=== PATIENT | female | born 1985 | race Caucasian/White ===

== ENCOUNTER 2017-07-21 08:52 | Outpatient (CLI) | payer OTHER | END 2017-07-21 09:02 | disposition home or self-care (01) | LOC: EKG 08:52 | DX: R22.9 Localized swelling, mass and lump, unspecified (principal); Z01.810 Encounter for preprocedural cardiovascular examination ==

== ENCOUNTER 2017-07-31 06:00 | Day surgery (SDC) | payer OTHER ==
[2017-07-31] MEDS ORDERED: ULTRACET PO (09:59)
[2017-07-31] MEDS ORDERED: CIPRO500 MG PO (09:59)
== END 2017-07-31 10:00 | disposition home or self-care (01) ==
LOC: CIR.AMB 06:00
DX: L82.1 Other seborrheic keratosis (principal)